=== PATIENT | male | born 1955 | race Asian ===

== ENCOUNTER 2016-10-07 02:40 | Emergency (ER) | payer OTHER ==
[~2016-10-07] VITALS: Ht 170.2 cm; Wt 59.4 kg
[~2016-10-07 02:40] MED LIST: ARTANE2 MG PO; LEVAQUIN500 MG PO; REQUIP1 MG PO; TENORMIN50 M1 PO; ZESTRIL5 MG PO
[2016-10-07 02:48] VITALS: BP 141/91
--- NOTE | 2016-10-07 02:53 | NUR ---
AMBULATED TO ER BED 4
[2016-10-07] MEDS ORDERED: NACL 0.9% 500 ML IV ONE (03:06)
[2016-10-07] MEDS ORDERED: KETOROLAC 30 MG/ML VIAL IVP ONE (03:10)
[2016-10-07] MEDS ORDERED: ONDANSETRON 4 MG/2 ML VIAL IVP ONE (03:10)
--- NOTE | 2016-10-07 03:20 | NUR ---
dr garland at bedside
--- NOTE | 2016-10-07 03:36 | NUR ---
bib daughter, c/o abd pain and vomitting x 1 day. pt has been off chemotherapy for 1 week and is due to start cycle 5 today. pt has double lumen picc line on left upper arm. blood cultures drawn from both lumens, labs drawn from purple. both lumens draw and flush without problems. AAOX4 WITH EVEN AND STEADY GAIT; LUNGS CLEAR BL; HR EVEN AND REGULAR; PT DENIES ANY FEVER, CP, SOB, OR COUGH AT THIS TIME; PATIENT STATES PAIN OF 10/10 AT THIS TIME; VSS; PATIENT POSITIONED FOR COMFORT; HOB ELEVATED; BEDRAILS UP X2; BED DOWN. ER MD MADE AWARE OF PT STATUS.
--- NOTE | 2016-10-07 03:54 | NUR ---
US BEING DONE AT BEDSIDE
[2016-10-07] MEDS ORDERED: fentaNYL 0.05 MG/ML VIAL IVP ONE (04:30)
--- NOTE | 2016-10-07 05:38 | NUR ---
Patient discharged with v/s stable. Written and verbal after care instructions given and explained. Patient alert, oriented and verbalized understanding of instructions. Ambulatory with steady gait. All questions addressed prior to discharge. ID band removed. Patient advised to follow up with PMD. Rx of norco and zofran given. Patient educated on indication of medication including possible reaction and side effects. Opportunity to ask questions provided and answered.
[2016-10-07 05:40] VITALS: BP 159/99
== END 2016-10-07 05:40 | disposition home or self-care (01) ==
LOC: MED 02:40
DX: R10.9 Unspecified abdominal pain (principal); R11.2 Nausea with vomiting, unspecified; C24.1 Malignant neoplasm of ampulla of Vater; C25.9 Malignant neoplasm of pancreas, unspecified; E11.9 Type 2 diabetes mellitus without complications; I10 Essential (primary) hypertension; Z85.038 Personal history of other malignant neoplasm of large intestine
CPT/HCPCS: 36415; 76700; 80053; 83690; 85025; 96361; 96374; 96375; 99285; J1885; J2405; J3010; J7030; Q0092

== ENCOUNTER 2017-05-03 16:45 | Inpatient (IN) | payer OTHER ==
[~2017-05-03] VITALS: Ht 180.3 cm; Wt 77.1 kg
[~2017-05-03 16:45] MED LIST changes: -ARTANE2 MG PO; +ATEN50TA8 PO; -LEVAQUIN500 MG PO; +LEVO500T6 PO; +LISI5TAB18 PO; -REQUIP1 MG PO; +ROPI1TAB PO; -TENORMIN50 M1 PO; +TRIH2TAB21 PO; -ZESTRIL5 MG PO
--- NOTE | 2017-05-03 16:51 | NUR ---
PT BIBA TO BED 8 AT THIS TIME.
[2017-05-03 16:55] VITALS: BP 124/80
--- NOTE | 2017-05-03 16:56 | NUR ---
62 YO MALE BIB EMS FROM FIELD FOR SYNCOPAL EPISODE. AWAKE AND ALERT ON ARRIVAL. DENIES N/V/D; SKIN IS PINK/WARM/DRY; AAOX4 WITH EVEN AND STEADY GAIT; LUNGS CLEAR BL; HR EVEN AND REGULAR; PT DENIES ANY FEVER, CP, SOB, OR COUGH AT THIS TIME; PATIENT STATES PAIN OF 0/10 AT THIS TIME; VSS; PATIENT POSITIONED FOR COMFORT; HOB ELEVATED; BEDRAILS UP X2; BED DOWN. ER MADE AWARE OF PT STATUS. Addendum: 05/03/17 at 1728 by MED1 HX; HTN, DM,TUMER ABD / ABD SURGURY.
[2017-05-03] MEDS ORDERED: ASPIRIN 325 MG TAB PO ONE (17:10)
--- NOTE | 2017-05-03 17:15 | NUR ---
LAB AT BEDSIDE
--- NOTE | 2017-05-03 17:21 | NUR ---
X RAY AT BEDSIDE
[2017-05-03 17:45] LABS: HEMATOCRIT 44.5 % (36-52); HEMOGLOBIN 14.5 g/dL (12.0-18.0); MEAN CORPUSCULAR HEMOGLOBIN 29 pg (27-31); MEAN CORPUSCULAR HGB CONC 33 g/dL (33-37); MEAN CORPUSCULAR VOLUME 89 fL (80-94); PLATELET COUNT (AUTO) 138 K/uL (140-450); RED BLOOD CELL COUNT(AUTO) 5.01 MIL/uL (4.20-6.10); RED CELL DISTRIBUTION WIDTH 13.9 % (11.6-13.7); WHITE BLOOD COUNT (AUTO) 5.3 K/uL (4.8-10.8)
[2017-05-03 18:07] LABS: CARBON DIOXIDE 27.7 mmol/L (21-32); CREATININE 1.1 mg/dL (0.7-1.3); TOTAL BILIRUBIN 0.5 mg/dL (0.0-1.0)
[2017-05-03 18:09] LABS: LYMPHOCYTES % (MANUAL) 7 % (20-46)
[2017-05-03 18:21] LABS: CREATINE KINASE MB 0.9 ng/mL (0-3.6)
[2017-05-03 18:29] LABS: POTASSIUM 3.7 mmol/L (3.5-5.1)
[2017-05-03 18:30] LABS: ALBUMIN 4.3 g/dL (3.4-5.0)
[2017-05-03] MEDS ORDERED: NACL 0.9% 1,000 ML IV ONE (18:40)
[2017-05-03] MEDS ORDERED: ACETAMINOPHEN 325 MG TAB PO PRN (19:10)
[2017-05-03] MEDS ORDERED: HYDROcodone/APAP 7.5/325 MG 1 TAB PO PRN (19:10)
[2017-05-03] MEDS ORDERED: ONDANSETRON 4 MG/2 ML VIAL IM/IVP PRN (19:10)
[2017-05-03] MEDS ORDERED: DOCUSATE SODIUM 100 MG GELCAP PO PRN (19:10)
[2017-05-03] MEDS ORDERED: MORPHINE SULFATE 2 MG/ML SYR IVP PRN (19:10)
--- NOTE | 2017-05-03 19:22 | NUR ---
Pt report given to SHAW PRAJAPATI. Transfer of care at this time.
--- NOTE | 2017-05-03 19:23 | NUR ---
PT RESTING IN BED, DAUGHTER AT BEDSIDE, VSS. DENIES ANY PAIN , NO OTHER S/S OF DISTRESS NOTED AT THE MOMENT.
--- NOTE | 2017-05-03 19:42 | NUR ---
PT TAKEN TO CT VIA JAN
--- NOTE | 2017-05-03 19:51 | NUR ---
PT RETURN FROM CT
[2017-05-03 19:52] LABS: APPEARANCE,URINE CLEAR (CLEAR); BILIRUBIN,URINE NEGATIVE (NEGATIVE); BLOOD, URINE NEGATIVE (NEGATIVE); LEUKOCYTE ESTERASE ,URINE NEGATIVE (NEGATIVE); NITRITE, URINE NEGATIVE (NEGATIVE); PH,URINE 5.5 (5.0-9.0); UGLUCOSE TRACE (NEGATIVE)
--- NOTE | 2017-05-03 19:56 | NUR ---
Patient will be admitted to care of DR SCHNEIDER. Admited to TELEMETRY. Will go to room 121A. Belongings list completed. Report to SHAW GRACE.
[2017-05-03 19:59] LABS: COLOR,URINE YELLOW (YELLOW)
--- NOTE | 2017-05-03 20:30 | NUR ---
PT TRASFERED TO FLOOR VIA GURNEY, ACCOMPANIED BY RN AND EMT. NO S/S OF DISTRESS NOTED DURING TRANSFER.
--- NOTE | 2017-05-03 20:40 | NUR ---
ADMITTED THIS 62 YEAR OLD MALE FROM ER PER JAN WITH CC OF [facility]OPE, AMBULATORY TO BED WITH STEADY GAIT, VITAL SIGNS STABLE, ASSESSMENT DONE, DENIES ANY PAIN AND DIZZINESS, SKIN INTACT WITH SURGICAL ABDOMINAL SCAR, ORIENTED TO ROOM AND CALL LIGHT, INSTRUCTED NPO FOR NOW, SAFETY MEASURES IN PLACE, CALL LIGHT WITHIN REACH.
[2017-05-03 20:47] LABS: PROTHROMBIN TIME 10.9 secs (10.8-13.4)
[2017-05-03 20:57] LABS: CHOL/HDL RATIO 2.8 (1-4.5); FREE T4 (FREE THYROXINE) 1.2 ng/dL (0.76-1.46); MAGNESIUM 1.9 mg/dL (1.8-2.4); PHOSPHORUS 3.9 mg/dL (2.5-4.9); THYROID STIMULATING HORMONE 1.36 uIU/mL (0.34-3.74)
[2017-05-03 21:00] VITALS: BP 103/69
[2017-05-03] MEDS: NACL 0.9% 1,000 ML IV SCH (21:09)
--- NOTE | 2017-05-03 22:00 | NUR ---
[facility], SANDWICH PROVIDED, CONSUMED 100%, ALL NEEDS ATTENDED.
[2017-05-04] VITALS: BP 102/70
--- NOTE | 2017-05-04 | NUR ---
PT SLEEPING, EASILY AROUSABLE, AAOX4, VITAL SIGNS STABLE, DENIES ANY PAIN OR SOB, IVF INFUSING WELL, CONTINUE TO MONITOR CLOSELY.
[2017-05-04 04:00] VITALS: BP 94/60
--- NOTE | 2017-05-04 04:00 | NUR ---
PT SLEEPING, EASILY AROUSABLE, VITAL SIGNS STABLE, AAOX4, DENIES ANY PAIN, VOIDING FREELY PER URINAL, IVF INFUSING WELL, MONITORED CLOSELY.
[2017-05-04] MEDS: NACL 0.9% 1,000 ML IV SCH ×3 (05:16→22:34)
[2017-05-04 06:18] LABS: BASOPHILS # (AUTO) 0.1 K/uL (0.00-0.22); EOSINOPHILS # (AUTO) 0.3 K/uL (0-0.4); EOSINOPHILS % (AUTO) 7.3 % (0.0-4.0); HEMATOCRIT 37.8 % (36-52); HEMOGLOBIN 12.7 g/dL (12.0-18.0); LYMPHOCYTES # (AUTO) 0.5 K/uL (2.0-11.5); LYMPHOCYTES % (AUTO) 12.2 % (20.5-51.1); MEAN CORPUSCULAR HEMOGLOBIN 30 pg (27-31); MEAN CORPUSCULAR HGB CONC 34 g/dL (33-37); MEAN CORPUSCULAR VOLUME 88 fL (80-94); MONOCYTES # (AUTO) 0.3 K/uL (0.8-1.0); MONOCYTES % (AUTO) 6.1 % (1.7-9.3); NEUTROPHILS # (AUTO) 3.1 K/uL (1.8-7.7); NEUTROPHILS % (AUTO) 72.4 % (42.2-75.2); PLATELET COUNT (AUTO) 143 K/uL (140-450); RED CELL DISTRIBUTION WIDTH 13.6 % (11.6-13.7); WHITE BLOOD COUNT (AUTO) 4.3 K/uL (4.8-10.8)
[2017-05-04 06:30] LABS: ANION GAP 9.8 (8-16); CARBON DIOXIDE 28.1 mmol/L (21-32); CREATININE 0.8 mg/dL (0.7-1.3); POTASSIUM 3.9 mmol/L (3.5-5.1)
--- NOTE | 2017-05-04 07:25 | NUR ---
RECEIVED REPORT FROM NIGHT NURSE, PT IS AAOX4. ON ROOM AIR, IV TO RIGHT AC 20G INFUSING WELL, SKIN INTACT, PT STATES NO DIZZINESS, INITIAL ASSESSMENT COMPLETED, REVIEW PLAN OF CARE WITH PT, PT VERBALIZED UNDERSTANDING, ALL SAFETY PRECAUTIONS MET, CALL LIGHT WITHIN REACH, WILL CONTINUE TO MONITOR.
--- NOTE | 2017-05-04 07:25 | NUR ---
PT AWAKE, NO SIGNS OF DISTRESS, REPORT GIVEN TO SHAW JENSEN FOR CONTINUITY OF CARE.
[2017-05-04 08:00] VITALS: BP 108/73
--- NOTE | 2017-05-04 08:16 | NUR ---
PATIENT HAS BEEN SCREENED AND CATEGORIZED MODERATE NUTRITION RISK. PATIENT WILL BE SEEN WITHIN 3-5 DAYS OF ADMISSION. 05/06/17-05/08/[address]
[2017-05-04] MEDS: LEVOFLOXACIN 750 MG/D5W PREMIX 150 ML IV SCH (09:17)
--- NOTE | 2017-05-04 09:21 | NUR ---
DUE MEDICATIONS GIVEN, PT TOLERATED WELL, FAMILY AT BEDSIDE. WILL CONTINUE TO MONITOR.
[2017-05-04] MEDS ORDERED: DEXTROSE 50% 50 ML SYR IVP PRN (10:35)
[2017-05-04] MEDS ORDERED: LISINOPRIL 5 MG TAB PO SCH (11:01)
[2017-05-04] MEDS ORDERED: ATENOLOL 50 MG TAB PO SCH (11:05)
[2017-05-04] MEDS: BLOOD GLUCOSE MONITORING 1 DEV DEV FS SCH ×3 (11:57→20:45)
--- NOTE | 2017-05-04 11:58 | NUR ---
PT CURRENTLY RESTING IN BED NO /S OF DISTRESS NOTED. BP MEDICATIONS NOT GIVEN BLOOD PRESSURE WNL. ALL NEEDS MET. CALL LIGHT WITHIN REACH. WILL CONTINUE TO MONITOR.
[2017-05-04 12:00] VITALS: BP 128/75
[2017-05-04] MEDS: INSULIN LISPRO SLIDING SCALE 100 UNITS/ML VIAL SUBQ PRN ×2 (12:12→20:44)
[2017-05-04] MEDS: rOPINIRole 1 MG TAB PO SCH ×2 (12:21→16:30)
[2017-05-04] MEDS: TRIHEXYPHENIDYL 2 MG TAB PO SCH ×2 (12:21→16:30)
--- NOTE | 2017-05-04 14:27 | NUR ---
PT CURRENTLY WATCHING TV. ALL NEEDS MET. WILL CONTINUE TO MONITOR.
--- NOTE | 2017-05-04 15:32 | NUR ---
P.T. NOTES P.T. EVAL DONE; NURSING TO AMBULATE PATIENT AD CALVIN; REFER TO EVAL FOR DETAILS.
[2017-05-04 16:00] VITALS: BP 130/77
--- NOTE | 2017-05-04 16:30 | NUR ---
DUE MEDICATIONS GIVEN, PT RESTING IN BED, NO S/S OF DISTRESS NOTED. WILL CONTINUE TO MONITOR.
[2017-05-04] MEDS ORDERED: LACTOBACILLUS RHAMNOSUS GG 1 EACH CAP PO SCH (17:00)
--- NOTE | 2017-05-04 18:35 | NUR ---
PT RESTING IN BED, NO S/S OF DISTRESS NOTED. ALL NEEDS MET. WILL CONTINUE TO MONITOR.
--- NOTE | 2017-05-04 19:14 | NUR ---
ENDORSED PLAN OF CARE WITH PT, PT CURRENTLY VISITING WITH FAMILY, NO S/S OF DISTRESS NOTED. PT IN STABLE CONDITION.
[2017-05-04 20:00] VITALS: BP 132/80
--- NOTE | 2017-05-04 20:10 | NUR ---
SEEN AMBULATING OUT OF THE BR WITH STEADY GAIT, DENIES ANY DIZZINESS, ORAL CARE DONE INDEPENDENTLY.
--- NOTE | 2017-05-04 20:50 | NUR ---
BLOOD SUGAR CHECKED WITH 160 RESULT, COVERAGE GIVEN WITH EDUCATION, NIGHTTIME SNACK PROVIDED, ALL NEEDS ATTENDED.
[2017-05-05] VITALS: BP 116/76
--- NOTE | 2017-05-05 | NUR ---
PT SLEEPING, EASILY AROUSABLE, VITAL SIGNS STABLE, DENIES ANY DIZZINESS OR PAIN, IVF INFUSING WELL, CONTINUE TO MONITOR CLOSELY.
[2017-05-05 01:25] LABS: BARBITURATE, URINE NEG. ng/ml (NEG <=200); BENZODIAZEPINE, URINE NEG. ng/mL (NEG <=200); CANNABINOID, URINE NEG. ng/mL (NEG <=50); COCAINE, URINE NEG. ng/mL (NEG <=300); OPIATE, URINE NEG. ng/mL (NEG <=2000); PHENCYCLIDINE SCREEN,URINE NEG. ng/mL (NEG <=25)
--- NOTE | 2017-05-05 03:40 | NUR ---
PT AWAKE, APPEARS RESTLESS, VITAL SIGNS STABLE, DENIES ANY PAIN, NO SOB NOTED, BLOOD SUGAR CHECKED WITH 85 RESULT, APPLE JUICE PROVIDED, IVF INFUSING WELL, MONITORED CLOSELY.
[2017-05-05 04:00] VITALS: BP 137/79
--- NOTE | 2017-05-05 04:30 | NUR ---
ROUNDED ON PT, SLEEPING, NO SIGNS OF DISTRESS, MONITORED CLOSELY.
[2017-05-05] MEDS: NACL 0.9% 1,000 ML IV SCH ×2 (05:39→08:58)
--- NOTE | 2017-05-05 05:46 | NUR ---
BLOOD SUGAR CHECKED WITH 119 RESULT, APPEARS CALM AND COMFORTABLE AT THIS TIME, MONITORED CLOSELY.
[2017-05-05] MEDS: BLOOD GLUCOSE MONITORING 1 DEV DEV FS SCH (06:36)
[2017-05-05 06:46] LABS: ANION GAP 11.3 (8-16); CARBON DIOXIDE 27.1 mmol/L (21-32); CREATININE 0.9 mg/dL (0.7-1.3); POTASSIUM 3.4 mmol/L (3.5-5.1)
[2017-05-05 06:59] LABS: MAGNESIUM 1.8 mg/dL (1.8-2.4)
--- NOTE | 2017-05-05 07:00 | NUR ---
RECEIVED PATIENT REPORT AT BEDSIDE. PATIENT AWAKE, ALERT AND ORIENTED. NO S/S OF DISTRESS NOTED. DENIES PAIN. PATIENT ON ROOM AIR. IV LINE TO THE LEFT AC INTACT WITH IVF INFUSING WELL. PATIENT ON TELE MONITORING. BED LOWERED WITH CALL LIGHT WITHIN REACH. WILL CONTINUE TO MONITOR
[2017-05-05 07:09] LABS: BASOPHILS # (AUTO) 0.1 K/uL (0.00-0.22); BASOPHILS % (AUTO) 3.7 % (0.0-2.0); EOSINOPHILS # (AUTO) 0.3 K/uL (0-0.4); EOSINOPHILS % (AUTO) 7.3 % (0.0-4.0); HEMATOCRIT 37.3 % (36-52); HEMOGLOBIN 12.1 g/dL (12.0-18.0); LYMPHOCYTES # (AUTO) 0.5 K/uL (2.0-11.5); LYMPHOCYTES % (AUTO) 14.2 % (20.5-51.1); MEAN CORPUSCULAR HEMOGLOBIN 29 pg (27-31); MEAN CORPUSCULAR HGB CONC 33 g/dL (33-37); MEAN CORPUSCULAR VOLUME 88 fL (80-94); MONOCYTES # (AUTO) 0.4 K/uL (0.8-1.0); MONOCYTES % (AUTO) 9.5 % (1.7-9.3); NEUTROPHILS # (AUTO) 2.5 K/uL (1.8-7.7); NEUTROPHILS % (AUTO) 65.3 % (42.2-75.2); PLATELET COUNT (AUTO) 137 K/uL (140-450); RED BLOOD CELL COUNT(AUTO) 4.23 MIL/uL (4.20-6.10); RED CELL DISTRIBUTION WIDTH 13.8 % (11.6-13.7); WHITE BLOOD COUNT (AUTO) 3.9 K/uL (4.8-10.8)
--- NOTE | 2017-05-05 07:30 | NUR ---
PT AWAKE, NO SIGNS OF DISTRESS, REPORT GIVEN TO SHAW COLE FOR CONTINUITY OF CARE.
[2017-05-05 08:00] VITALS: BP 125/85
[2017-05-05] MEDS: TRIHEXYPHENIDYL 2 MG TAB PO SCH (08:57)
[2017-05-05] MEDS: rOPINIRole 1 MG TAB PO SCH (08:58)
[2017-05-05] MEDS: LEVOFLOXACIN 750 MG/D5W PREMIX 150 ML IV SCH (08:58)
[2017-05-05] MEDS ORDERED: ATENOLOL 50 MG TAB PO SCH (09:00)
[2017-05-05] MEDS ORDERED: LACTOBACILLUS RHAMNOSUS GG 1 EACH CAP PO SCH (09:00)
[2017-05-05] MEDS ORDERED: LISINOPRIL 5 MG TAB PO SCH (09:00)
--- NOTE | 2017-05-05 11:30 | NUR ---
PATIENT DISCHARGED TO HOME. DISCHARGE INSTRUCTIONS GIVEN. PATIENT VERBALIZED UNDERSTANDING. IV LINE DISCONTINUED. TELE LEADS TAKEN OFF. PATIENT LEFT WITH ALL HIS BELONGINGS AND DISCHARGE PAPERS. PATIENT LEFT IN STABLE CONDITION
== END 2017-05-05 11:30 | disposition home or self-care (01) | DRG 640 ==
LOC: MED 16:45 → MTU 19:07
PROVIDERS: ADMIT Student in an Organized Health Care Education/Training Program; ATTEND Student in an Organized Health Care Education/Training Program
DX: E86.0 Dehydration (principal); N17.0 Acute kidney failure with tubular necrosis; R65.10 Systemic inflammatory response syndrome (SIRS) of non-infectious origin without acute organ dysfunction; E11.8 Type 2 diabetes mellitus with unspecified complications; D68.59 Other primary thrombophilia; E87.0 Hyperosmolality and hypernatremia; G20 Parkinson's disease; I10 Essential (primary) hypertension; R80.9 Proteinuria, unspecified; Z80.1 Family history of malignant neoplasm of trachea, bronchus and lung; Z83.79 Family history of other diseases of the digestive system; Y93.89 Activity, other specified; Y92.89 Other specified places as the place of occurrence of the external cause; Y99.8 Other external cause status; Z85.028 Personal history of other malignant neoplasm of stomach
CPT/HCPCS: 36415; 70450; 71010; 80048; 80053; 80305; 81003; 82150; 82550; 82553; 82948; 83036; 83605; 83690; 83735; 83880; 84100; 84436; 84439; 84443; 84479; 84484; 85025; 85610; 85730; 87040; 87081; 87086; 93880; 93925; 93970; 96360; 99285; J1815; J1956; J7030; Q0092